=== PATIENT | male | born 1960 | race Caucasian/White ===

== ENCOUNTER 2020-04-15 05:35 | Day surgery (SDC) | payer MEDICARE ==
[~2020-04-15] VITALS: Ht 175.3 cm; Wt 77.8 kg
--- NOTE | ~2020-04-15 | OR ---
[facility] [address], [place] [address] Draft DATE OF OPERATION: 04/15/2020 SURGEON: Rafael Dickerson DPM PREOPERATIVE DIAGNOSIS: Ganglion cyst, right foot. POSTOPERATIVE DIAGNOSIS: Ganglion cyst, right foot. DISC SANDER SURGEON: Ezra Hanna DPM. PROCEDURE: Ganglion cyst excision, right foot. ANESTHESIA: IV general with local block, right foot. STONE SETTER METAL OPTICAL FRAMES: Rafael Cottrell. SPECIMEN TO PATHOLOGY: Soft tissue of ganglion cyst, right foot. DESCRIPTION OF PROCEDURE: The patient was brought to the operating room and placed on table in the supine position. Anesthesia Department administered IV sedation, after which a local block was given to the right foot using a total of 9 mL of 1:1 mixture of 0.5% ropivacaine plain and 2% lidocaine plain. The right leg and foot were then prepped and draped in the usual sterile manner and an Esmarch was used for hemostasis. Attention was initially directed to the soft tissue lesion lateral right foot, just distal to ankle level and overlying the peroneus tertius tendon. The incision was initially about 4 cm in length, then extended intraoperatively, slightly proximal and distal to a length of about 6 cm. An incision was initially full-thickness through the dermis using careful dissection and cautery as necessary for hemostasis. The lesion became visible within the surgical site very quickly and appeared to be a ballooned area of the tendon sheath for the peroneus tertius tendon. The lesion was fluid-filled and appeared consistent with a ganglion, but could not be from the tendon without PATIENT NAME: NURIS LOYOLA OPERATIVE REPORT DATE OF : 64 REPORT #: [id number] PHYSICIAN: RAFAEL DICKERSON DPM PCP: NO PRIMARY CARE PHYSICIAN REPORT IS CONFIDENTIAL AND NOT TO BE RELEASED WITHOUT AUTHORIZATION [facility] [address], [place] [address] Draft fully removing the complete tendon sheath. Therefore, the decision was made at this time to open the tendon sheath, removing the redundant area of tendon sheath and the majority of the ganglion cyst type lesion, without closing the tendon sheath, hopefully avoiding recreating a new cyst that would then expand and reform. Leaving the tendon sheath open will hopefully allow this to fill in and to scar together, and not immediately duplicate the problem. The soft tissue of the lesion, which was excised was sent for pathology. The surgical site then irrigated with copious amounts of normal saline, subcutaneous tissue was closed using 4-0 Vicryl, and skin was closed using 5-0 nylon. Surgical site then dressed with Adaptic, Betadine-soaked gauze, dry gauze, Flexicon, and Coban for mild compression. INTRAOPERATIVE COMPLICATIONS: None. ESTIMATED BLOOD LOSS: Less than 5 mL. The patient tolerated the procedure and the anesthesia well and left the operating room with vital signs stable and vascular status intact to the right foot as evidenced by hyperemia with removal of the Esmarch. IVAN Jay/TERRIL /[id number] Copies: ~ PATIENT NAME: NIRNURIS ABELARDO OPERATIVE REPORT DATE OF : 64 REPORT #: [id number] PHYSICIAN: RAFAEL DICKERSON DPM PCP: NO PRIMARY CARE PHYSICIAN REPORT IS CONFIDENTIAL AND NOT TO BE RELEASED WITHOUT AUTHORIZATION
[~2020-04-15 05:35] MED LIST: PHENOBARBITAL32.4 MG PO
--- NOTE | 2020-04-15 09:09 | NUR ---
04/15/20 0909 Marion Landeros 0810 PT ARRIVED IN PACU AWAKE AND YELLING OBSCENITIES. HE WOULD SIT UP IN BED, THEN LAY BACK DOWN MULTIPLE TIMES. 0830 PT MANIC SPEAKING ABOUT [employer], FALLING ASLEEP, WAKING UP EARLY AND ANYTHING ELSE THAT CAME TO MIND. NO C/O'S PAIN. REMINDED PT SURGERY WAS OVER AND IN PACU. 0840 PT ASKING FOR FRIEND TO RECEIVE DC INSTRUCTIONS, BECAUSE HE WOULDN'T REMEMBER. PT GETTING DRESSED WITH CALMER ATTITUDE. SURGICAL SHOE PLACED ON R FOOT. 0850 LEFT VIA W/C. DC INSTRUCTIONS GIVEN TO FRIEND AT CAR. PT THANKED EVERYONE FOR CARE AND TO STAY SAFE BEFORE LEAVING.
== END 2020-04-15 08:50 | disposition home or self-care (01) ==
LOC: OPS 05:35 → DS 05:35 → OPS 07:00
PROVIDERS: ATTEND Podiatrist Foot Surgery
PROC: 0LBV0ZZ Excision of Right Foot Tendon, Open Approach (ICD-10-PCS; principal; 2020-04-15 07:00)
DX: M67.471 Ganglion, right ankle and foot (principal); Z88.0 Allergy status to penicillin
CPT/HCPCS: J1100; J2001; J2405; J2704; J2795; J3010; J7121

== ENCOUNTER 2024-01-04 13:35 | Emergency (ER) | payer MEDICARE ==
[~2024-01-04] VITALS: Ht 175.3 cm; Wt 78.1 kg
[2024-01-04 14:11] LABS: BILIRUBIN, URINE NEGATIVE (negative); BLOOD/HGB, URINE TRACE-L (Negative); KETONE, URINE NEGATIVE (Negative); LEUK ESTERASE, URINE NEGATIVE (negative); NITRITE, URINE NEGATIVE (negative)
[2024-01-04 14:16] LABS: EPITHELIAL CELLS, URINE SQUAMOUS 1+ /lpf (0-1+)
[2024-01-04 14:17] LABS: BACTERIA, URINE NONE SEEN /hpf (negative); CASTS, URINE NONE SEEN \\lpf; COLLECTION TYPE, URINE CLEAN CATCH; CRYSTALS, URINE NONE SEEN (0-1+); REFLEX CULTURE, URINE No (No)
[2024-01-04] MEDS ORDERED: PHENOBARBITAL64.8 MG PO (14:33)
[2024-01-04] MEDS ORDERED: LORAZEPAM1 MG PO (14:33)
[2024-01-04 16:24] VITALS: BP 122/60
== END 2024-01-04 16:24 | disposition home or self-care (01) ==
LOC: ED 13:35
PROVIDERS: Emergency Medicine
DX: N43.3 Hydrocele, unspecified (principal); H92.03 Otalgia, bilateral; F17.200 Nicotine dependence, unspecified, uncomplicated; Z88.0 Allergy status to penicillin; Z88.5 Allergy status to narcotic agent; Z79.899 Other long term (current) drug therapy
CPT/HCPCS: 76870; 81001; 99284